=== PATIENT | female | born 1970 | race Caucasian/White ===

== ENCOUNTER 2016-08-15 02:52 | Emergency (ER) | payer BC, MEDICARE ==
--- NOTE | ~2016-08-15 | EKG ---
PATIENT: SANGEETHA PEARSON UNIT #: [id number] Ventricular Rate: 88 BPM Atrial Rate: 88 BPM P-R Interval: 148 ms QRS Duration: 80 ms Q-T Interval: 370 ms QTC Calculation(Bezet): 447 ms P Mutual: 67 degrees Calculated R Mutual: 83 degrees Calculated T Mutual: 44 degrees Diagnosis Line: Normal sinus rhythm Diagnosis Line: Nonspecific ST abnormality Otherwise normal ECG Diagnosis Line: When compared with ECG of 20-JUL-2014 10:29, Diagnosis Line: No significant change was found Diagnosis Line: Confirmed by SAWYER TREVINO MD ([id number]) on 08/15/2016 Diagnosis Line: 5:44:46 PM INTERPRETING MD: BELINDA NEGRON
--- NOTE | ~2016-08-15 | CR72 ---
[facility] Service of [facility] RADIOLOGY TEXT RESULTS PATIENT: SANGEETHA PEARSON LOCATION: [facility] : 71 UNIT #: [id number] AGE: [address]: Nia Pang MD SEX: F ORDER DR: [id number] [facility] [address] [place], [place] [address] [id number] E MR#: [id number] Acc #: [id number] NAME: SANGEETHA PEARSON : 1970 SEX: F STUDY DATE/TIME: 08/15/2016 02:18 UNIT: [facility] ROOM: STUDY DESCRIPTION: CR Chest Single View Portable Attending Physician: Nia Pang M.D. Ordering Physician: Nia Pang M.D. Primary Care Physician: Antonio Jacob M.D. MEDICAL IMAGING REPORT This report is preliminary unless electronic signature is present EXAM Portable chest 08/15/2016 02:18 INDICATIONS Left side chest pain that started tonight. COMPARISON 07/20/2014. FINDINGS A single AP portable view of the chest shows both lungs to be clear. The heart is normal in size. The mediastinal contour is normal. No significant bone abnormalities are seen. IMPRESSION Normal portable chest. Dictated by... José Miguel Gonzalez Jr., M.D. THIS IS AN ELECTRONICALLY VERIFIED REPORT José Miguel Gonzalez Jr., M.D. at 08/15/2016 10:02 PM ERGLA/marco TD: 08/15/2016 08:16 JOB #: [id number] MEDICAL IMAGING REPORT COPY
[~2016-08-15 02:52] MED LIST: ACETAMINOPHEN; ATARAX PO; ATIVAN PO; AUGMENTIN; AUGMENTIN875 M1 PO; CELEXA PO; CELEXA10 MG PO; CIPRODEX OTIC7.5 ML AD; EFFEXOR; ERYTHROMYCIN O3.5 GM OD; FIORICET1 TAB PO; FLEXERIL10 MG PO; FLOMAX0.4 M1 PO; FLONASE16 GM; HYDROCODON-ACE1 EAC7 PO; IBUPROFEN; LORTAB 5/500 TA1 TA1 PO; LORTAB 7.5-5001 TAB PO; MEDROL4 MG/DOSE- PO; NO MEDICATIONS; OMNICEF300 MG PO; PERCOCET 7.5/321 TAB PO; PERCOCET5/325 PO; PROZAC10 MG PO; TYLENOL #3 PO; VOLTAREN50 MG PO; VOLTAREN75 MG PO
[2016-08-15 03:09] LABS: POC - CKMB 1.4 ng/mL (0.0-7.9); POC - TROPONIN <0.05 ng/mL (<=0.05)
[2016-08-15 03:29] LABS: BASOPHIL# 0.1 X10e3 (0-0.3); BASOPHIL% 0.8 % (0-2.5); DIFF IND NO; EOSINOPHIL# 0.5 X10e3 (0-0.7); EOSINOPHIL% 5.7 % (0.0-7.0); HEMATOCRIT 39.1 % (35.0-45.0); LYMPHOCYTE# 2.3 X10e3 (1.0-3.5); LYMPHOCYTE% 26.4 % (17.0-45.0); MEAN CELL VOLUME 87.6 FL (83-96); MEAN CORPUSCULAR HEMOGLOBIN 29.1 PG (28-34); MEAN CORPUSCULAR HGB CONC 33.2 g/dL (30-36); MEAN PLATELET VOLUME 7.7 FL (6.5-11.5); MONOCYTE# 0.6 X10e3 (0-1.0); MONOCYTE% 6.8 % (3.0-12.0); NEUTROPHIL# 5.2 X10e3 (1.5-7.1); NEUTROPHIL% 60.3 % (40-75); PLATELET COUNT 372 X10e3 (140-420); RED BLOOD COUNT 4.46 X10e (3.90-5.30); RED CELL DISTRIBUTION WIDTH 13.8 % (11.0-15.5); WHITE BLOOD COUNT 8.7 X10e3 (4.0-10.5)
[2016-08-15 03:53] LABS: ALKALINE PHOSPHATASE 117 U/L (32-92); ALT (SGPT) 35 U/L (10-40); AST (SGOT) 25 U/L (10-42); BILIRUBIN, DIRECT 0.1 mg/dL (0.0-0.2); BILIRUBIN,INDIRECT 0.6 mg/dL (0.0-0.9); BILIRUBIN,TOTAL 0.7 mg/dL (0.2-2.0); BLOOD UREA NITROGEN 8 mg/dL (9-23); BUN/CREATININE RATIO 11.42; CALCIUM SERUM 9.1 mg/dL (8.4-10.2); CARBON DIOXIDE 24 mmol/L (22-31); CHLORIDE 103 mmol/L (100-111); CREATININE SERUM 0.7 mg/dL (0.6-1.4); GLOM FILT RATE Estimated ABOVE60 mL/min (>60); GLUCOSE FASTING 108 mg/dL (70-110); POTASSIUM 3.4 mmol/L (3.5-5.1); SODIUM 135 mmol/L (135-145)
[2016-08-15 04:53] LABS: POC - CKMB 1.1 ng/mL (0.0-7.9); POC - TROPONIN <0.05 ng/mL (<=0.05)
== END 2016-08-15 05:44 | disposition home or self-care (01) ==
LOC: CED 02:52
PROVIDERS: Emergency Medicine
DX: R07.89 Other chest pain (principal); F17.200 Nicotine dependence, unspecified, uncomplicated
CPT/HCPCS: 36415; 71010; 80048; 80076; 82553; 84484; 85025; 93005; 99284; J1885

== ENCOUNTER → 2016-09-16 | Outpatient (CLI) | payer BC, MEDICARE ==
[~2016-09-16] MED LIST changes: +ACETAMINOPHEN650 M1 PO; +EFFEXOR PO; +PROTONIX PO
--- NOTE | ~2016-09-16 | MR32 ---
[facility] A Service of [facility] RADIOLOGY TEXT RESULTS PATIENT: SANGEETHA PEARSON LOCATION: [facility] : 71 UNIT #: [id number] AGE: [address]: Antonio Jacob MD SEX: F ORDER DR: [id number] [place] [id number] O MR#: [id number] Acc #: [id number] NAME: SANGEETHA PEARSON : 1970 SEX: F STUDY DATE/TIME: 09/16/2016 10:20 UNIT: [facility] ROOM: STUDY DESCRIPTION: MR Cervical Wo Contrast Attending Physician: Antonio Jacob M.D. Referring Physician: Antonio Jacob M.D. Ordering Physician: Antonio Jacob M.D. Primary Care Physician: Antonio Jacob M.D. MRI CENTER REPORT This report is preliminary unless electronic signature is present. EXAM Cervical spine MRI, no contrast. DATE OF STUDY 09/16/2016 COMPARISON STUDIES 01/22/2007 PROCEDURE Routine unenhanced cervical spine MRI. CLINICAL HISTORY Increasing neck pain especially left sided for 8 months with left hand numbness. FINDINGS Redemonstrated reversal of cervical lordosis is centered at C6. Cord signal is normal and the posterior fossa and its contents are normal. There is mild canal stenosis at 5-6 and 6-7, but no cord compression. Bone marrow signal is mostly normal but there is abnormal marrow edema and around the left C2-3 facet joint. Edema extends into the left C2 and C3 lamina, and may secondarily involve the left C2-3 foramen. There is no evidence of a discrete or drainable fluid collection. Findings suggest acute active left C2-3 facet arthritis. Certainly, a septic arthritis cannot be excluded, but again, there is no adjacent discrete fluid collection. This is a substantial change since the prior exam. No other substantial interval change is seen. IMPRESSION Chronic reversal of lordosis in the lower cervical region with some canal narrowing without cord compression which is stable. However, new since [facility] A Service of [facility] RADIOLOGY TEXT RESULTS PATIENT: SANGEETHA PEARSON LOCATION: [facility] : 71 UNIT #: [id number] AGE: [address]: Antonio Jacob MD SEX: F ORDER DR: the study of 01/22/2007 is marked marrow edema and soft tissue edema in and around the left C2-3 facet joint. The inflammatory change may secondarily involve the left C2-3 foramen. There is no discrete fluid collection, and the findings could simply represent an acute bland synovial arthritis, though an infectious or septic arthritis cannot be excluded, though those are often accompanied by aspiratable fluid collections, not seen here. Dictated by... Jim Benson M.D. THIS IS AN ELECTRONICALLY VERIFIED REPORT Jim Benson M.D. at 09/18/2016 5:07 PM GLENNY/kvng TD: 09/16/2016 17:19 JOB #: [id number] MRI CENTER REPORT Page 1 of 1
== END | disposition home or self-care (01) ==
LOC: SMRI 09:56
DX: M54.2 Cervicalgia (principal); R20.2 Paresthesia of skin; G95.19 Other vascular myelopathies
CPT/HCPCS: 72141

== ENCOUNTER 2016-12-31 12:34 | Emergency (ER) | payer BC, MEDICARE ==
--- NOTE | ~2016-12-31 | CR172 ---
[facility] A Service of [facility] RADIOLOGY TEXT RESULTS PATIENT: SANGEETHA PEARSON LOCATION: [facility] : 72 UNIT #: [id number] AGE: [address]: MOLLY REINA SEX: F ORDER DR: [id number] [address] [address] [id number] E MR#: [id number] Acc #: [id number] NAME: SANGEETHA PEARSON : 1970 SEX: F STUDY DATE/TIME: 12/31/2016 12:56 UNIT: [facility] ROOM: STUDY DESCRIPTION: CR Knee 3 Views Lt Ordering Physician: Er [facility] Primary Care Physician: Antnoio Jacob M.D. MEDICAL IMAGING REPORT This report is preliminary unless electronic signature is present. EXAM 3 views of the left knee 12/31/2016 HISTORY Left knee pain for 1 week. No known trauma. Difficult to bend. Pain greatest on the medial side. COMPARISON Bilateral standing view right knee radiographs 03/18/2016. FINDINGS AP, lateral patellar sunrise views were obtained. No fracture. No subluxation. Joint spaces appear well preserved. Probable trace of patellar joint effusion. No osteolytic or osteoblastic abnormality. IMPRESSION Probable trace suprapatellar joint effusion. No acute osseous abnormality of the left knee. Dictated by... Brooke Lacy M.D. THIS IS AN ELECTRONICALLY VERIFIED REPORT Brooke Lacy M.D. at 01/01/2017 11:56 AM LLH/pcl TD: 12/31/2016 20:19 JOB #: [id number] MEDICAL IMAGING REPORT Page 1 of 1
[~2016-12-31 12:34] MED LIST changes: -ACETAMINOPHEN650 M1 PO; -EFFEXOR PO; -PROTONIX PO
[2016-12-31] MEDS ORDERED: EFFEXOR PO (12:43)
== END 2016-12-31 14:10 | disposition home or self-care (01) ==
LOC: SED 12:34
DX: M25.562 Pain in left knee (principal); G89.29 Other chronic pain; K21.9 Gastro-esophageal reflux disease without esophagitis
CPT/HCPCS: 29530; 73562; 96372; 99283; J1885

== ENCOUNTER 2017-01-06 08:03 | Observation (INO) | payer BC, MEDICARE ==
[~2017-01-06] VITALS: Ht 170.2 cm; Wt 86.1 kg
--- NOTE | ~2017-01-06 | EKG ---
PATIENT: SANGEETHA PEARSON UNIT #: [id number] Ventricular Rate: 91 BPM Atrial Rate: 91 BPM P-R Interval: 148 ms QRS Duration: 86 ms Q-T Interval: 380 ms QTC Calculation(Bezet): 467 ms P Taylor: 63 degrees Calculated R Taylor: 77 degrees Calculated T Taylor: 23 degrees Diagnosis Line: Normal sinus rhythm Diagnosis Line: Possible Left atrial enlargement Diagnosis Line: Borderline ECG Diagnosis Line: When compared with ECG of 15-AUG-2016 01:58, Diagnosis Line: No significant change was found Diagnosis Line: Confirmed by IGOR GASTON MD ([id number]) on Diagnosis Line: 01/06/2017 8:56:55 AM INTERPRETING MD: ALEK NEGRON
--- NOTE | ~2017-01-06 | DS ---
Unit #: [id number] #: [id number] Patient: SANGEETHA PEARSON [id number] [place] [id number] [facility] [place], [place] [address] [id number] MR#: [id number] NAME: SANGEETHA PEARSON. ROOM: 571 Age: 46 Sex: F Admission Date: 01/06/2017 : 1970 Discharge Date: 01/07/2017 Attending Physician: Ryan Torres M.D. Primary Care Physician: Antonio Jacob M.D. DISCHARGE SUMMARY *SHORT STAY SUMMARY* REVISED REPORT SEE ADDENDUM REASON FOR ADMISSION Chest pain. 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 Taveras or Dr. Torres for pre-op clearance. The patient has a history of Crohn disease, anxiety, degenerative disk disease, GERD and a history of a stress and cardiac cath at [facility] 3 years ago that was reportedly normal. The patient states that she went for pre-op testing for C5, C6 and C7 fusion that she needs to have, and when she had the EKG, they told her it was abnormal and that the patient needed to have cardiac clearance prior to her surgery. The patient was being referred to Dr. Taveras when, 2 days ago, she began to have a burning sensation to the left side of her chest. The patient states that it has been off and on for the past 2 days and it seems to be worse when she is resting or at night. The patient states that the discomfort has awakened her from sleep. Generally she gets up and walks around, goes to the bathroom and that does help the burning to improve. The patient states that she had a stress test and a cardiac cath about 3 years ago for some chest pain, which all were normal at that time. The patient denies any kind of symptoms of diaphoresis, shortness of breath, palpitations, nausea, dizziness or syncope. The patient states that she thought maybe the first night it was anxiety related to the fact that she needed to have cardiac clearance prior to her surgery and that she may just be worried about it; therefore, she kind of blew it off. However, once it began to happen again the next day, she then felt that she should come in and be evaluated. Initial troponins in the ER have been unremarkable at less than 0.05 x2 sets. EKG here shows normal sinus rhythm with a rate of 91. The EKG from [facility] that was obtained on January 02 does show an incomplete right bundle branch, which is also evident on the EKG here. PAST MEDICAL HISTORY 1. Crohn disease. 2. Anxiety. 3. Degenerative disk disease. Unit #: [id number] #: [id number] Patient: SANGEETHA PEARSON 4. GERD. 5. History of normal stress and cardiac cath at [facility] 3 years ago. SURGICAL HISTORY 1. Two bowel surgeries. 2. Right wrist surgery. SOCIAL HISTORY The patient lives at home. She smokes E-cigarettes at this time; however, she was a zitq-ufr-top smoker for 20 years. She denies any alcohol abuse or any other drug abuse. FAMILY HISTORY Mom had mitral valve prolapse but no other cardiac history known to her family other than an uncle who was a heavy alcoholic and had a heart attack in his 30s. ALLERGIES No known drug allergies. HOME MEDICATIONS The only thing listed is Effexor. There is no dose available, and there is not a full medication reconciliation form available at this time. REVIEW OF SYSTEMS A 10-point review of systems is negative except for what is listed above in the HPI. PHYSICAL EXAMINATION GENERAL: This is a 46-year-old white female who is alert and oriented x3 in no apparent distress. VITAL SIGNS: Blood pressure is 115/63, temp 97.8, pulse 72, respirations 16. HEENT: Pupils are equal, round and reactive. Oral mucosa is moist. NECK: No JVD. No thyromegaly. No lymphadenopathy. No carotid bruits. HEART: S1, S2. No S3, S4. No clicks. No rubs. No murmurs. LUNGS: Clear. ABDOMEN: Soft. Bowel sounds positive. Nontender. Nondistended. EXTREMITIES: No swelling noted. NEUROLOGIC: No neuro deficits noted. DIAGNOSTIC STUDIES LABORATORY STUDIES: White count 8.5, hemoglobin 12.2, hematocrit 36.6, platelets 378. INR 0.9. Troponin less than 0.05 x2. Sodium 139, potassium 3.5, chloride 107, CO2 23, glucose 124, BUN 10, creatinine 0.8, AST 26, ALT 27, alkaline phosphatase 105. H. pylori screening was negative. CARDIOVASCULAR: EKG shows sinus rhythm with an incomplete right bundle branch block. IMPRESSION 1. Atypical chest pain. 2. Crohn disease. 3. Anxiety. 4. Degenerative disk disease. 5. Smoker of E-cigarettes currently with a history of 1-oaqx-bwx-day smoker x20 years. Unit #: [id number] #: [id number] Patient: SANGEETHA PEARSON PLAN Will plan to evaluate with a two-D echo for LV dysfunction and valvular abnormalities. Will plan for a treadmill Cardiolite stress test in the morning to rule out any ischemic disease. Will also plan to check a fasting lipid panel and an A1C level tomorrow morning. Will start aspirin 81 mg p.o. daily. Will have them to call once med/rec is available for all other medications. Troponin q.6 hours x3 sets. Further recommendations pending doctor's review, as well as current testing results. Dictated by Jessica Atkins APRN for Robin Mehta TD: 01/06/2017 13:38 JOB #: [id number] ADDENDUM The patient is being discharged today. The patient underwent stress testing with a treadmill Cardiolite stress test, where she walked 7 minutes and 3 seconds without any kind of chest pain or anginal symptoms. Cardiolite images were reviewed by Dr. Morrow and he reported that her stress images were negative for any ischemia. The patient will be discharged home today on the same medications that she was admitted on with exception of Protonix that will be added for possible GERD symptoms. The patient was having some preop clearance for C-spine surgery, which she is cleared for with the tests come back normal. DISCHARGE DIAGNOSES Include; 1. Atypical chest pain ruled out for ischemia. 2. Crohn's. 3. Anxiety. 4. Degenerative disk disease. 5. Gastroesophageal reflux disease. 6. Tobacco abuse. DISCHARGE PLAN The patient will be discharged home with followup with her PCP in a couple of weeks. We will place the patient on a 30- day supply of Protonix, where she should follow up with her PCP to have refilled if medication works for her symptoms. DISCHARGE CONDITION Stable. Dictated by... Jessica Atkins APRN Unit #: [id number] #: [id number] Patient: PEARSONSANGEETHA TD: 01/07/2017 13:40 JOB #: [id number] CC: Srinivas Billings M.D. DISCHARGE SUMMARY Page 1 of 1 X X DISCHARGE SUMMARY
--- NOTE | ~2017-01-06 | CR72 ---
[facility] A Service of [facility] RADIOLOGY TEXT RESULTS PATIENT: SANGEETHA PEARSON LOCATION: [place] [address] : [birth year] UNIT #: [id number] AGE: [address]: Ryan Torres MD SEX: F ORDER DR: [id number] [facility] [address] [place], [place] [address] [id number] MR#: [id number] Acc #: [id number] NAME: SANGEETHA PEARSON : 1970 SEX: F STUDY DATE/TIME: 01/06/2017 8:32 UNIT: CEDOF ROOM: 29816 STUDY DESCRIPTION: CR Chest Single View Portable Attending Physician: Ryan Torres M.D. Ordering Physician: Shiv Tinsley M.D. Primary Care Physician: Antonio Jacob M.D. MEDICAL IMAGING REPORT This report is preliminary unless electronic signature is present EXAM Portable chest 01/06/2017 08:32 INDICATION Shortness of air and left side chest pain for the last 2 days. COMPARISON 08/15/2016. FINDINGS AP portable chest was obtained. Cardiac and mediastinal contours are normal. The lungs are clear. No pneumothorax is seen. Thoracic scoliosis is unchanged. IMPRESSION No active disease. Dictated by... José Miguel Gonzalez Jr., M.D. THIS IS AN ELECTRONICALLY VERIFIED REPORT José Miguel Gonzalez Jr., M.D. at 01/06/2017 4:42 PM REGLA/marco TD: 01/06/2017 14:23 JOB #: [id number] MEDICAL IMAGING REPORT Page 1 of 1 COPY
--- NOTE | ~2017-01-06 | HP ---
Unit #: [id number] #: [id number] Patient: SANGEETHA PEARSON [id number] [address] [place], [place] [address] [id number] I MR#: [id number] NAME: SANGEETHA PEARSON. ROOM: 33463 Age: 46 Sex: F Admission Date: 01/06/2017 : 1970 Attending Physician: Ryan Torres M.D. Primary Care Physician: Antonio Jacob M.D. HISTORY AND PHYSICAL REASON FOR ADMISSION Chest pain. 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 Taveras or Dr. Torres for pre-op clearance. The patient has a history of Crohn disease, anxiety, degenerative disk disease, GERD and a history of a stress and cardiac cath at [facility] 3 years ago that was reportedly normal. The patient states that she went for pre-op testing for C5, C6 and C7 fusion that she needs to have, and when she had the EKG, they told her it was abnormal and that the patient needed to have cardiac clearance prior to her surgery. The patient was being referred to Dr. Taveras when, 2 days ago, she began to have a burning sensation to the left side of her chest. The patient states that it has been off and on for the past 2 days and it seems to be worse when she is resting or at night. The patient states that the discomfort has awakened her from sleep. Generally she gets up and walks around, goes to the bathroom and that does help the burning to improve. The patient states that she had a stress test and a cardiac cath about 3 years ago for some chest pain, which all were normal at that time. The patient denies any kind of symptoms of diaphoresis, shortness of breath, palpitations, nausea, dizziness or syncope. The patient states that she thought maybe the first night it was anxiety related to the fact that she needed to have cardiac clearance prior to her surgery and that she may just be worried about it; therefore, she kind of blew it off. However, once it began to happen again the next day, she then felt that she should come in and be evaluated. Initial troponins in the ER have been unremarkable at less than 0.05 x2 sets. EKG here shows normal sinus rhythm with a rate of 91. The EKG from [facility] that was obtained on January 02 does show an incomplete right bundle branch, which is also evident on the EKG here. PAST MEDICAL HISTORY 1. Crohn disease. 2. Anxiety. 3. Degenerative disk disease. 4. GERD. 5. History of normal stress and cardiac cath at [facility] 3 years ago. SURGICAL HISTORY 1. Two bowel surgeries. Unit #: [id number] #: [id number] Patient: SANGEETHA PEARSON 2. Right wrist surgery. SOCIAL HISTORY The patient lives at home. She smokes E-cigarettes at this time; however, she was a jmqc-kwz-lmx smoker for 20 years. She denies any alcohol abuse or any other drug abuse. FAMILY HISTORY Mom had mitral valve prolapse but no other cardiac history known to her family other than an uncle who was a heavy alcoholic and had a heart attack in his 30s. ALLERGIES No known drug allergies. HOME MEDICATIONS The only thing listed is Effexor. There is no dose available, and there is not a full medication reconciliation form available at this time. REVIEW OF SYSTEMS A 10-point review of systems is negative except for what is listed above in the HPI. PHYSICAL EXAMINATION GENERAL: This is a 46-year-old white female who is alert and oriented x3 in no apparent distress. VITAL SIGNS: Blood pressure is 115/63, temp 97.8, pulse 72, respirations 16. HEENT: Pupils are equal, round and reactive. Oral mucosa is moist. NECK: No JVD. No thyromegaly. No lymphadenopathy. No carotid bruits. HEART: S1, S2. No S3, S4. No clicks. No rubs. No murmurs. LUNGS: Clear. ABDOMEN: Soft. Bowel sounds positive. Nontender. Nondistended. EXTREMITIES: No swelling noted. NEUROLOGIC: No neuro deficits noted. DIAGNOSTIC STUDIES LABORATORY STUDIES: White count 8.5, hemoglobin 12.2, hematocrit 36.6, platelets 378. INR 0.9. Troponin less than 0.05 x2. Sodium 139, potassium 3.5, chloride 107, CO2 23, glucose 124, BUN 10, creatinine 0.8, AST 26, ALT 27, alkaline phosphatase 105. H. pylori screening was negative. CARDIOVASCULAR: EKG shows sinus rhythm with an incomplete right bundle branch block. IMPRESSION 1. Atypical chest pain. 2. Crohn disease. 3. Anxiety. 4. Degenerative disk disease. 5. Smoker of E-cigarettes currently with a history of 7-zdnt-wur-day smoker x20 years. PLAN Will plan to evaluate with a two-D echo for LV dysfunction and valvular abnormalities. Will plan for a treadmill Cardiolite stress test in the morning to rule out any ischemic disease. Will also plan to check a fasting lipid panel and an A1C level tomorrow morning. Will start aspirin Unit #: [id number] #: [id number] Patient: SANGEETHA PEARSON 81 mg p.o. daily. Will have them to call once med/rec is available for all other medications. Troponin q.6 hours x3 sets. Further recommendations pending doctor's review, as well as current testing results. Dictated by Jessica Atkins APRN for Robin Mehta TD: 01/06/2017 13:38 JOB #: [id number] HISTORY AND PHYSICAL Page 1 of 1 X X HISTORY AND PHYSICAL
--- NOTE | ~2017-01-06 | TH ---
Unit #: [id number] #: [id number] Patient: SANGEETHA PEARSON [id number] [address] [address] [id number] I MR#: [id number] NAME: SANGEETHA PEARSON. : 1970 SEX: F STUDY DATE/TIME: 01/07/2017 UNIT: [facility] ROOM: 571 STUDY DESCRIPTION: Cardiolite imaging. Attending Physician: Ryan Torres M.D. Primary Care Physician: Antonio Jacob M.D. CARDIOLOGY REPORT EXAM Cardiac stress test and Cardiolite imaging. PROCEDURE The patient's baseline heart rate was 72 beats per minute, blood pressure 118/77. The patient exercised on a standard Aroldo protocol for 7 minutes 4 seconds. She achieved a peak heart rate of 162 beats per minute, which is 93% of predicted heart rate. Peak blood pressure is 150/88. The patient's baseline EKG is showing normal sinus rhythm, normal EKG. During exercise and in recovery no further ST-T changes. The patient had 11.41 mCi of Cardiolite at rest and 35.5 mCi of Cardiolite during stress. Both sets of images were compared. The patient shows fairly uniform uptake of radiotracer. No defect was noted. The patient also had gated SPECT scan done, which showed normal left ventricular size and function. No wall motion abnormality detected. Ejection fraction is 53%. INTERPRETATION 1. Good exercise tolerance. 2. Appropriate hemodynamic response. 3. EKG part of the test is negative for stress induced ischemia. 4. Nuclear part of the test is negative for myocardial ischemia. 5. Gated SPECT scan shows normal left ventricular size and function. Dictated by... Robin Herrera TD: 01/08/2017 15:00 JOB #: [id number] CC: Douglas Morrow M.D. Unit #: [id number] #: [id number] Patient: SANGEETHA PEARSON CARDIOLOGY REPORT Page 1 of 1 X Douglas Morrow MD CARDIOLOGY REPORT
[~2017-01-06 08:03] MED LIST changes: +EFFEXOR PO
[2017-01-06 08:37] LABS: BASOPHIL# 0.1 X10e3 (0-0.3); BASOPHIL% 0.8 % (0-2.5); EOSINOPHIL# 0.4 X10e3 (0-0.7); HEMATOCRIT 36.6 % (35.0-45.0); HEMOGLOBIN 12.2 gm/dL (12.0-16.0); LYMPHOCYTE# 2.6 X10e3 (1.0-3.5); LYMPHOCYTE% 30.9 % (17.0-45.0); MEAN CELL VOLUME 86.9 FL (83-96); MEAN CORPUSCULAR HEMOGLOBIN 28.9 PG (28-34); MEAN CORPUSCULAR HGB CONC 33.3 g/dL (30-36); MEAN PLATELET VOLUME 6.7 FL (6.5-11.5); MONOCYTE# 0.5 X10e3 (0-1.0); NEUTROPHIL# 4.9 X10e3 (1.5-7.1); NEUTROPHIL% 57.3 % (40-75); PLATELET COUNT 378 X10e3 (140-420); RED BLOOD COUNT 4.21 X10e (3.90-5.30); RED CELL DISTRIBUTION WIDTH 14.3 % (11.0-15.5); WHITE BLOOD COUNT 8.5 X10e3 (4.0-10.5)
[2017-01-06 08:38] LABS: DIFF IND NO
[2017-01-06 08:50] LABS: INR 0.9; PROTHROMBIN TIME (PATIENT) 10.1 SECONDS (10.0-11.7)
[2017-01-06 08:50] LABS: POC - CKMB 3.1 ng/mL (0.0-7.9); POC - TROPONIN <0.05 ng/mL (<=0.05)
[2017-01-06 09:18] LABS: ALBUMIN SERUM 3.8 g/dL (3.5-5.0); BILIRUBIN, DIRECT 0.1 mg/dL (0.0-0.2); BILIRUBIN,INDIRECT 0.5 mg/dL (0.0-0.9); BILIRUBIN,TOTAL 0.6 mg/dL (0.2-2.0); BUN/CREATININE RATIO 12.5; CALCIUM SERUM 8.8 mg/dL (8.4-10.2); CREATININE SERUM 0.8 mg/dL (0.6-1.4); GLOM FILT RATE Estimated 89.1 mL/min (>60); POTASSIUM 3.5 mmol/L (3.5-5.1); PROTEIN TOTAL SERUM 7.1 g/dL (6.0-8.3)
[2017-01-06 10:27] LABS: POC - CKMB 2.6 ng/mL (0.0-7.9); POC - TROPONIN <0.05 ng/mL (<=0.05)
[2017-01-06 17:39] LABS: %MB 3.5 % (0.0-4.0); MB 4.7 ng/ml
[2017-01-06 23:31] LABS: %MB 3.4 % (0.0-4.0); MB 4.5 ng/ml
[2017-01-07 06:19] LABS: BUN/CREATININE RATIO 15.71; CREATININE SERUM 0.7 mg/dL (0.6-1.4); GLOM FILT RATE Estimated 104.6 mL/min (>60); POTASSIUM 4.1 mmol/L (3.5-5.1)
[2017-01-07 06:26] LABS: %MB 4.2 % (0.0-4.0)
[2017-01-07] MEDS ORDERED: ACETAMINOPHEN650 M1 PO (13:24)
[2017-01-07] MEDS ORDERED: PROTONIX PO (13:24)
== END 2017-01-07 14:39 | disposition home or self-care (01) | DRG 313 ==
LOC: CED 08:03 → CEDOF 12:29 → C5C 12:29 → CED 13:07 → CEDOF 13:07 → C5C 15:06 → CEDOF 15:06 → C5C 01-07 14:39
PROVIDERS: Internal Medicine Cardiovascular Disease; Physician Assistant
DX: R07.89 Other chest pain (principal); K21.9 Gastro-esophageal reflux disease without esophagitis; I45.10 Unspecified right bundle-branch block; K50.90 Crohn's disease, unspecified, without complications; M50.30 Other cervical disc degeneration, unspecified cervical region; F41.9 Anxiety disorder, unspecified; F17.210 Nicotine dependence, cigarettes, uncomplicated; Z82.49 Family history of ischemic heart disease and other diseases of the circulatory system; Z79.899 Other long term (current) drug therapy; Z98.890 Other specified postprocedural states
CPT/HCPCS: 36415; 71010; 78452; 80048; 80061; 80076; 82550; 82553; 83036; 83735; 84484; 85025; 85610; 85730; 86677; 93005; 93017; 93306; 94760; 99285; A9500; G0378